=== PATIENT | male | born 1960 | race Caucasian/White ===

== ENCOUNTER 2017-01-10 12:29 | Emergency (ER) | payer OTHER ==
[2017-01-10] MEDS ORDERED: ALEVE220 M3 PO (12:53)
[2017-01-10 14:22] LABS: ANION GAP 16 mmol/L (0-20); BLOOD UREA NITROGEN 9 mg/dl (6-24); CALCIUM 8.9 mg/dl (8.5-10.5); CARBON DIOXIDE-VENOUS 23 mmol/L (22-32); CHLORIDE 96 mmol/l (96-110); CREATININE 0.67 mg/dl (0.60-1.30); GLUCOSE 76 mg/dL (70-110); POTASSIUM 3.6 mmol/L (3.7-5.1); SODIUM 131 mmol/L (135-145); eGFR VALUE FOR BLACK >90 mL/Min
[2017-01-10] MEDS ORDERED: NORCO 5-325 TA1 EACH PO (15:10)
[2017-01-10] MEDS ORDERED: BACTRIM DS TAB1 EAC2 PO (15:10)
== END 2017-01-10 15:31 ==
LOC: EDMED 12:29
PROVIDERS: Physician Assistant
DX: H00.034 Abscess of left upper eyelid (principal)
CPT/HCPCS: J2270; Q9967